=== PATIENT | male | born 1950 | race Caucasian/White ===

== ENCOUNTER 2024-06-05 15:00 | Outpatient (RCR) | payer MEDICARE, BC, SELFPAY ==
--- NOTE | 2024-05-15 16:47 | PT.OPEX ---
PT [place] Outpatient Eval PT [facility] Outpatient Eval Start: 05/15/24 09:15 Freq: Status: Active Protocol: Document 05/15/24 09:15 EILEEN (Rec: 05/15/24 16:47 EILEEN [id number]) E-signed By Charo Britt PT Physical Therapy Outpatient Evaluation Insurance Information Recert Due Date 08/12/24 Insurance Name Medicare B Medical Diagnosis CHRONIC NECK PAIN Treating Diagnosis NECK PAIN Referring MD LIONEL WHITESIDE Subjective Preferred Name KARINA Subjective PATIENT REPORTS WAKING 2-3 WEEKS AGO AND EXPERIENCING LEFT SIDED NECK PAIN. HE HAS CHANGED HIS PILLOW AND THIS SEEMS TO HAVE HELPED BUT C/O PAIN WITH RIGHT ROTATION PREDOMINATELY. HE WORKS FROM HIS DESK ~8HOURS A DAY BUT STATES, I GET UP AND MOVE AROUND EVERY 30-45 MINUTES AND GO FOR A 45 MIN WALK 3-4 X/WK . HE HAS BEEN TAKING IBUPROFEN AND USING HEAT WHICH HE FEELS IS HELPING WELL LOOKED ONLINE AND PERFORM STRETCHES FOR THE CERVICAL SPINE. HE IS UNABLE TO LAY FLAT ON HIS BACK D/T POSITIONAL COUGHING LIKELY RELATED TO HIS NEWLY DIAGNOSED UMBILICAL HERNIA. HE IS HERE TO IMPROVE HIS PAINFREE ROM BEFORE BEGINNING HIS ABDOMINAL WALL THERAPY WITH [facility]. 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 : [employer] Precautions Treatment Precautions/Contraindications NEWLY DX UMBILICAL HERNIA, CHRONIC COUGH D/T VIRAL INFECTION NOW TAKES NEBULIZER TX BID/DAILY, IDDM W/PUMP AND MONITOR, CAD W/TRIPLE BYPASS 2012 Therapy Limitations/Systems Review Not Limited Objective Other/Pertinent Objective SPINAL ALIGNMENT/POSTURE : SLIGHT FWD HEAD POSTURING WITH MOD ROUNDED SHOULDERS CERVICAL ROM Flexion: WNL Extension: WNL MIN ENDRANGE PAIN ON LEFT Right Rotation: WFL Left Rotation: LIMITED BY 50% W/PAIN AT ENDRANGE Right side bend: WFL Left Side bend: LIMITED BY 50% W/PAIN AT ENDRAGE SHOULDER AROM: UNREMARKABLE NECK/SHOULDER MMT: UNREMARKABLE SPECIAL TEST Spurlings Test: LEFT (+) Cervical distraction test: (- ) Neural Tension Test(Median/ Ulnar/Radial): (-) Bakody Sign(C4-C6 Radiculopathy): Shoulder impingement : UNREMARKABLE JOINT MOBILITY/PALPATION: MIN HYPOMOBILITY AT C4-5, C5-6 LEFT FACET WITH PALPABLE INFLAMMATION Functional Test Performed & Score NDI:11 (22%) Assessment Assessment/Impression PATIENT IS A [address] LIONEL WHITESIDE TO EVAL AND TREAT CHRONIC NECK PAIN; PMHX IS LISTED ABOVE PER PATIENT RECOLLECTION; HE DEMONSTRATES LIMITED AND PAINFUL LEFT ROTATION, LEFT SB , AND CERVICAL EXT WITH ASSOCIATED HYPOMOBILITY AT C4- 6 LEFT FACET AND PALPABLE INFLAMMATION AT SAME LEVEL. 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 Primary Functional Limitations PROLONGED POSITIONS SLEEPING IN PREFERRED POSITION -> STOMACH MOBILITY OF CERVICAL SPINE FOR DRIVING Plan of Care Rehabilitation Potential Good Physical Therapy Goals 1. PATIENT WILL BE EDUCATED ON POSTURE, BODY MECHANICS AND THE IMPORTANCE OF EA IN THE NEXT 2-3 WEEKS IN ORDER TO DECREASE STRESS TO THE JOINT/ MM AND TO DECREASE THEIR SYMPTOMS. 2. PATIENT WILL DECREASE THEIR PAIN AT WORST FROM 4/10 TO > /2/10 IN THE NEXT 4-6 WEEKS WE PROGRESS HER PHYSICAL THERAPY WELL DURING DAILY ACTIVITIES. 3. PATIENT WILL DEMONSTRATE IMPROVEMENT WITH THEIR ROM BY 25% / WFL TO IMPROVE EASE OF DAILY ACTIVITIES/LOGISTICS ASSISTANT AND WITH DRIVING WITHOUT FLARE UP OF PAIN. 4. PATIENT WILL BE INDEPENDENT WITH THEIR HEP WITHIN 6-8 WEEKS FOR PROGRESSION OF THE ABOVE GOALS, ONGOING SELF MGMT OF PAIN/SX, ONGOING, SELF IMPROVEMENTS IN ROM, POSTURE, AND RETURN TO BASELINE WITH DAILY ACTIVITIES, PEER/FAMILY CENTERED ACTIVITIES WITHOUT FLARE UPS OF SYMPTOMS/PAIN. Coordination/Communication With Referral Source Treatment Plan/Direct Interventions Heat,Ice/Cold/Vasopneumatic, Joint Mobilization,Manual Therapy,Neuromuscular Re-ed, Self-Care/Home Management, Therapeutic Activities, Therapeutic Exercises Frequency/Duration 1-2X/WK Patient Will Be Discharged From Therapy Completion of LTG(s), Independent w/HEP Evaluation Billing Untimed Code Treatment Minutes 25 PT Eval No Charge No Complexity Moderate Certification Information Initial Certification Date 05/15/24 Ending Certification Date 08/12/24 Provider Signature Required Yes Provider Signature Shows Agreement With POC & Medical Necessity Physician NPI Number Write NPI# Here Physician Comment/Change : Physician Signature & Date Requested Please Sign/Date Here
== END 2024-07-01 13:37 | disposition home or self-care (01) ==
PROVIDERS: PCP Family Medicine; Visit Provider Family Medicine
DX: M54.2 Cervicalgia (principal); G89.29 Other chronic pain; Z51.89 Encounter for other specified aftercare
CPT/HCPCS: 97110; 97140; 97162

== ENCOUNTER 2024-07-08 13:00 | Outpatient (RCR) | payer MEDICARE, BC, SELFPAY | END 2024-11-05 23:59 | disposition home or self-care (01) | PROVIDERS: PCP Family Medicine; Visit Provider Surgery | DX: K42.9 Umbilical hernia without obstruction or gangrene (principal); M62.08 Separation of muscle (nontraumatic), other site; R53.1 Weakness; R27.9 Unspecified lack of coordination; Z51.89 Encounter for other specified aftercare | CPT/HCPCS: 97110; 97140; 97162 ==

== ENCOUNTER 2025-07-28 09:54 | Emergency (ER) | payer MEDICARE, BC, SELFPAY ==
[2025-07-28 10:06] VITALS: BP 116/65; PULSE 86; RESP 24; TEMP 36.6; O2SAT 93; BMI 24.9
--- NOTE | 2025-07-28 10:22 | ED.GENADULT ---
HPI - General Adult General Date Seen: 07/28/25 Chief complaint: Cough Stated complaint: respiratory ; cough Time Seen by Provider: 07/28/25 10:16 Source: patient, family, RN notes reviewed and old records reviewed Mode of arrival: ambulatory Limitations: no limitations History of Present Illness HPI narrative: Jabier is a very pleasant 75-year-old type 1 diabetic with history of heart attack, stent placement in the early , prostate cancer in remission who comes to the emergency room for evaluation of persistent cough from the clinic. Jabier is noted to have recently been in [place] before . The day after he arrived he had a cold and other members of the family also had similar symptoms. A son-in-law tested and was negative for COVID. Unfortunately he continued to have weakness and cough in [place] and they flew back last week. His symptoms have not resolved in fact they have worsened a bit. He was getting some production with a yellow greenish and even occasionally orange production, but the last 2 days he has not. Denies any lower extremity edema calf tenderness history of DVT. He has had persistent runny nose and mild sore throat since the onset of his symptoms. Jabier does see pulmonology at [facility]. Is a history of brachial stasis. Related Data Home Medications ?Medication ?Instructions ?Recorded ?Confirmed aspirin 81 mg chewable tablet 81 mg PO DAILY 07/28/25 07/28/25 (Children's Aspirin) atorvastatin 40 mg tablet 40 mg PO DAILY 07/28/25 07/28/25 ezetimibe 10 mg tablet 10 mg PO DAILY 07/28/25 07/28/25 insulin aspart U-100 100 unit/mL 0 - 90 unit DIRECTED 07/28/25 subcutaneous solution insulin glargine 100 unit/mL 16 unit subcut DAILY 07/28/25 07/28/25 subcutaneous solution (Lantus U-100 Insulin) ipratropium 0.5 mg-albuterol 3 mg 3 ml inhalation BID PRN 07/28/25 07/28/25 (2.5 mg base)/3 mL nebulization soln Previous Rx's ?Medication ?Instructions ?Recorded amoxicillin 875 mg-potassium 1 tab PO BID #14 tabs 07/28/25 clavulanate 125 mg tablet azithromycin 250 mg tablet 250 mg PO DAILY 4 days #4 tabs 07/28/25 Allergies Allergy/AdvReac Type Severity Reaction Status Date / Time No Known Drug Allergies Allergy Verified 07/28/25 10:16 Review of Systems Status of ROS: Reports: 10 or more systems reviewed and unremarkable except as noted in History and below Const: Reports: fatigue; Denies: fever or chills Eyes: Denies: eye discharge ENMT: Reports: throat pain (Mild), nasal discharge and nasal congestion; Denies: neck pain Cardio: Reports: shortness of breath with exertion; Denies: chest pain, palpitations or swelling of feet/ankles Resp: Reports: shortness of breath and cough GI: Reports: diarrhea (Had 1 episode); Denies: abdominal pain, nausea, vomiting or constipation : Denies: painful urination or urinary frequency Musculo: Denies: back pain, neck pain or extremity pain Endo: Reports: fatigue Exam Narrative: Exam Narrative: Alert and oriented. Very well-spoken gentleman. No acute distress. Definitely appears fatigued. Eyes are clear oral cavity with moist mucous membranes. No erythema exudate in the posterior oropharynx. Neck is supple without lymphadenopathy. TMs bilaterally without erythema. Nose is clear. Heart with regular rate and rhythm. No additional heart sounds or murmurs loaded. Definitely decreased breath sounds on the left with fine crackles noted. Occasional crackles on the right. Abdomen soft nontender. Lower extremities show skin changes consistent with venous stasis. Healing scab over lateral distal lower extremity on the right. No calf tenderness, edema, Homans sign is negative. Const: Vital Signs, click to edit/add: Vital Signs - 24 hr 07/28/25 10:06 07/28/25 11:45 07/28/25 12:26 Temperature 97.9 F Pulse Rate [Pulse Oximeter] 86 82 62 Respiratory Rate 24 20 18 Blood Pressure [Ri ght Upper Arm] 116/65 142/86 H 129/63 Pulse Oximetry 93 95 95 Oxygen Delivery Me thod Room Air Room Air Room Air 07/28/25 12:30 07/28/25 13:00 07/28/25 13:30 Temperature Pulse Rate [Pulse Oximeter] 61 62 60 Respiratory Rate 20 20 16 Blood Pressure [Ri ght Upper Arm] 133/68 136/68 120/63 Pulse Oximetry 96 96 95 Oxygen Delivery Me thod Room Air Documenting provider has reviewed patient's vital signs: yes Course Course ED Course: Differential diagnosis includes but is not limited to pneumonia, PE, congestive heart failure, MRI. At this time I do not think we are dealing with sepsis as patient has normal vital signs, is afebrile with a normal pulse and blood pressure. Will place an IV and draw CBC, comprehensive, CRP, troponin,. Will also obtain CT of the chest PE study. Vital Signs Vital signs: Initial Vital Signs Temperature 97.9 F 07/28/25 10:06 Temperature Source Temporal Artery Scan 07/28/25 10:06 Pulse Rate 86 07/28/25 10:06 Respiratory Rate 24 07/28/25 10:06 Blood Pressure 116/65 07/28/25 10:06 Blood Pressure Mean 82 07/28/25 10:06 Blood Pressure Position Sitting 07/28/25 10:06 Pulse Oximetry 93 07/28/25 10:06 Oxygen Delivery Method Room Air 07/28/25 10:06 Vital Signs Temperature 97.9 F 07/28/25 10:06 Pulse Rate 86 07/28/25 10:06 Respiratory Rate 24 07/28/25 10:06 Blood Pressure 116/65 07/28/25 10:06 Pulse Oximetry 93 07/28/25 10:06 Oxygen Delivery Method Room Air 07/28/25 10:06 Temperature 97.9 F 07/28/25 10:06 Pulse Rate 60 07/28/25 13:30 Respiratory Rate 16 07/28/25 13:30 Blood Pressure 120/63 07/28/25 13:30 Pulse Oximetry 95 07/28/25 13:30 Oxygen Delivery Method Room Air 07/28/25 13:30 Medications Administered Medications: Discontinued Medications Generic Name Dose Route Start Last Admin Trade Name Malou PRN Reason Stop Dose Admin Azithromycin 500 mg 07/28/25 12:58 07/28/25 13:28 Azithromycin 250 Mg Tablet PO 07/28/25 12:59 500 mg ONCE ONE Administration Sodium Chloride 500 mls @ 500 mls/hr 07/28/25 10:35 07/28/25 12:30 0.9 % Sodium Chloride 500 Ml IV 07/28/25 11:34 500 mls/hr .Q1H PHOEBE Administration Piperacillin Sod/Tazobactam 100 mls @ 200 mls/hr 07/28/25 12:58 07/28/25 13:27 Sod 3.375 gm/ Sodium Chloride IVPB 07/28/25 12:59 200 mls/hr ONCE ONE Administration Medical Decision Making MDM Narrative Medical decision making narrative: 1. Pneumonia -CT confirmed pneumonia with no evidence of PE. White count elevated at 13.49 and CRP elevated at 5.7. He has tested negative for COVID and influenza. Antibiotics given in the ED. Patient received Zosyn 3.375 g and Zithromax 500 mg p.o. while in the ED. Would have him continue to his home nebulizers. He will continue on Augmentin 875 p.o. b.i.d. with 1st dose tonight for treatment of pneumonia. Zithromax 250 mg daily for 4 days will be started tomorrow. 2. Type 1 diabetes -continue to monitor is these numbers may be elevated secondary to infection. 3. Disposition-home at this time. He will return for worsening symptoms and as needed. He voices understanding. Initial potassium elevated at 5.6. I did have them redraw it and his potassium is 4.8 and thus initial potassium likely secondary to hemolysis. Medical Records Medical records reviewed: Yes I reviewed the patient's medical records Lab Data Lab results reviewed: Yes I reviewed the patient's lab results Labs: Lab Results 07/28/25 07/28/25 07/28/25 Range/Units 10:16 10:35 10:50 WBC 13.49 H (4.50-11.00) K/uL RBC 4.35 (4.30-5.90) m/uL Hgb 13.1 L (13.5-17.5) gm/dL Hct 40.3 (37.0-53.0) % MCV 93 (80-100) fL MCH 30 (26-34) pg MCHC 33 (32-36) gm/dL RDW Coeff of Tomasa 12.8 (11.5-15.5) % Plt Count 312 (140-440) K/uL Neut % (Auto) 85.0 H (42.0-72.0) % Lymph % (Auto) 7.3 L (20-44) % K[place]y % (Auto) 5.0 (0.0-11.0) % Eos % (Auto) 1.9 (0.0-7.0) % Baso % (Auto) 0.3 (0.0-3.0) % Neut # (Auto) 11.50 H (1.7-7.0) K/uL Lymph # (Auto) 1.00 (0.90-2.90) K/uL Kenedy # (Auto) 0.70 (0.00-0.90) K/UL Eos # (Auto) 0.30 (0.00-0.50) K/uL Baso # (Auto) 0.00 (0.00-0.30) K/uL Abs Immat Gran (auto) 0.10 (0.00-0.30) K/uL Imm/Tot Granulo (auto) 0.5 % Sodium 137 (135-149) mmol/L Potassium 5.6 H (3.6-5.1) mmol/L Chloride 102 (96-114) mmol/L Carbon Dioxide 26 (20-32) mmol/L Anion Gap 9 (7-15) mEq/L BUN 25 (7-30) mg/dL Creatinine 1.3 (0.5-1.5) mg/dL Estimated Creat Clear 54.72 Estimated GFR 58 ml/min Glucose 206 H (60-115) mg/dL Lactate 1.0 (0.5-1.9) mmol/L Calcium 8.9 (8.4-10.6) mg/dL Total Bilirubin 0.8 (0.1-1.5) mg/dL AST 41 H (12-35) U/L ALT 36 (4-50) U/L Alkaline Phosphatase 77 (40-150) U/L POC Troponin I High Sensi 11.8 (2.9-28.0) pg/mL C-Reactive Protein 5.7 H (0.5-1.0) mg/dL Total Protein 7.0 (6.0-8.3) g/dL Albumin 3.8 (3.3-5.0) g/dL SARS-CoV-2 (PCR) Negative SARS-CoV-2 (Negative) Influenza Type A (PCR) Negative PCR FLU A (Negative) Influenza Type B (PCR) Negative PCR FLU B (Negative) POC Creatinine (0.6-1.3) mg/dl 07/28/25 07/28/25 Range/Units 11:17 12:06 WBC (4.50-11.00) K/uL RBC (4.30-5.90) m/uL Hgb (13.5-17.5) gm/dL Hct (37.0-53.0) % MCV (80-100) fL MCH (26-34) pg MCHC (32-36) gm/dL RDW Coeff of Tomasa (11.5-15.5) % Plt Count (140-440) K/uL Neut % (Auto) (42.0-72.0) % Lymph % (Auto) (20-44) % K[place]y % (Auto) (0.0-11.0) % Eos % (Auto) (0.0-7.0) % Baso % (Auto) (0.0-3.0) % Neut # (Auto) (1.7-7.0) K/uL Lymph # (Auto) (0.90-2.90) K/uL [place]y # (Auto) (0.00-0.90) K/UL Eos # (Auto) (0.00-0.50) K/uL Baso # (Auto) (0.00-0.30) K/uL Abs Immat Gran (auto) (0.00-0.30) K/uL Imm/Tot Granulo (auto) % Sodium (135-149) mmol/L Potassium 4.8 (3.6-5.1) mmol/L Chloride (96-114) mmol/L Carbon Dioxide (20-32) mmol/L Anion Gap (7-15) mEq/L BUN (7-30) mg/dL Creatinine (0.5-1.5) mg/dL Estimated Creat Clear Estimated GFR ml/min Glucose (60-115) mg/dL Lactate (0.5-1.9) mmol/L Calcium (8.4-10.6) mg/dL Total Bilirubin (0.1-1.5) mg/dL AST (12-35) U/L ALT (4-50) U/L Alkaline Phosphatase (40-150) U/L POC Troponin I High Sensi (2.9-28.0) pg/mL C-Reactive Protein (0.5-1.0) mg/dL Total Protein (6.0-8.3) g/dL Albumin (3.3-5.0) g/dL SARS-CoV-2 (PCR) (Negative) Influenza Type A (PCR) (Negative) Influenza Type B (PCR) (Negative) POC Creatinine 1.4 H (0.6-1.3) mg/dl Imaging Data CT scan - chest: Attestation: I have reviewed the pertinent imaging results. My impression: I do not note any any PE but I do see evidence of bilateral pneumonia Radiologist's impression: FINDINGS: No pulmonary embolism is seen. Aorta is normal caliber. Moderate multifocal peripheral tree-in-bud nodularity greatest within the lower lung nugent with relative sparing the upper lungs. Consolidations within the medial right middle lobe and lingula, likely represents chronic scarring. Other linear consolidation is noted within the left lower lobe which is indeterminate. There is lower lobe predominant bronchial wall thickening with mucous plugging. No pleural effusion or pneumothorax. No gross mediastinal lymphadenopathy. Prominent hilar lymph nodes are likely reactive. The heart is prominent. Coronary calcifications present. No axillary lymphadenopathy. No chest wall mass. Imaging of the upper abdomen demonstrate a small hiatal hernia. Bone windows demonstrate no suspicious lytic or sclerotic lesion. No fracture. IMPRESSION: 1. Moderate multifocal tree-in-bud nodularity with lower lobe bronchial wall thickening and mucous plugging as evidence for atypical infection and/or aspiration with bronchitis. Short-term chest CT follow-up is recommended in 3 months. 2. No pulmonary embolism is seen. ECG Data Attestation: I personally reviewed and interpreted this ECG as follows: Interpretation: EKG by my read shows sinus rhythm at a rate of 63. I do not note any acute ST or T-wave changes. QT interval appears normal. Discharge Plan Discharge Clinical Impression: Pneumonia Patient Disposition: Home, Self-Care Condition: Unchanged Additional Instructions: Start Augmentin an antibiotic this evening and continued twice a day for 7 more days. Zithromax is your other antibiotic and will be once daily. You already received your dose today. Continue nebulizers and any other pulmonary treatments that you currently due. Increase fluids and stay well hydrated. Seek medical attention for worsening symptoms high fever and as needed. Prescriptions: New amoxicillin-pot clavulanate 875-125 mg tablet 1 tab PO BID Qty: 14 0RF azithromycin 250 mg tablet 250 mg PO DAILY 4 Days Qty: 4 0RF No Action atorvastatin 40 mg tablet 40 mg PO DAILY ezetimibe 10 mg tablet 10 mg PO DAILY aspirin [Children's Aspirin] 81 mg tablet,chewable 81 mg PO DAILY ipratropium-albuterol 0.5 mg-3 mg(2.5 mg base)/3 mL solution for nebulization 3 ml INHALATION BID PRN insulin glargine [Lantus U-100 Insulin] 100 unit/mL solution 16 unit subcut DAILY insulin aspart U-100 100 unit/mL solution 0 - 90 unit DIRECTED Follow Up/Referrals: Kody Loving MD [Primary Care Provider, Family Practice] Stand Alone Forms: Secret Lab Info Instructions
--- NOTE | 2025-07-28 10:35 | CRLHL7_ITS ---
For Patients: As a result of the Century Cures Act, medical imaging exams and procedure reports are released immediately into your electronic medical record. You may view this report before your referring provider. If you have questions, please contact your health care provider. INDICATION: Pulmonary embolism suspected, high probability. Cough. Recent travel TECHNIQUE: CT chest PE was acquired with 100 cc Omnipaque 350 IV contrast. Coronal and MIP reconstructions were performed. COMPARISON: None. FINDINGS: No pulmonary embolism is seen. Aorta is normal caliber. Moderate multifocal peripheral tree-in-bud nodularity greatest within the lower lung nugent with relative sparing the upper lungs. Consolidations within the medial right middle lobe and lingula, likely represents chronic scarring. Other linear consolidation is noted within the left lower lobe which is indeterminate. There is lower lobe predominant bronchial wall thickening with mucous plugging. No pleural effusion or pneumothorax. No gross mediastinal lymphadenopathy. Prominent hilar lymph nodes are likely reactive. The heart is prominent. Coronary calcifications present. No axillary lymphadenopathy. No chest wall mass. Imaging of the upper abdomen demonstrate a small hiatal hernia. Bone windows demonstrate no suspicious lytic or sclerotic lesion. No fracture. IMPRESSION: 1. Moderate multifocal tree-in-bud nodularity with lower lobe bronchial wall thickening and mucous plugging as evidence for atypical infection and/or aspiration with bronchitis. Short-term chest CT follow-up is recommended in 3 months. 2. No pulmonary embolism is seen. Please note that all CT scans at this facility use dose modulation, iterative reconstruction, and/or weight-based dosing when appropriate to reduce radiation dose to as low as reasonably achievable. Dictated by Jerel Mendenhall MD @ 07/28/2025 12:12:00 PM (Electronically Signed)
[2025-07-28 10:59] LABS: Lactate* 1.0 mmol/L (0.5-1.9)
[2025-07-28 11:02] LABS: Hematocrit* 40.3 % (37.0-53.0); Hemoglobin* 13.1 gm/dL (13.5-17.5); Immature Granulocytes Pct Auto 0.5 %; Mean Corpuscular HGB Conc 33 gm/dL (32-36); Mean Corpuscular Hemoglobin 30 pg (26-34); Mean Corpuscular Volume 93 fL (80-100); RDW Coefficient of Variation % 12.8 % (11.5-15.5); Red Blood Count* 4.35 m/uL (4.30-5.90); White Blood Count* 13.49 K/uL (4.50-11.00)
[2025-07-28 11:03] LABS: PCR FLU A Negative PCR FLU A (Negative); PCR FLU B Negative PCR FLU B (Negative); SARS PCR* Negative SARS-CoV-2 (Negative)
[2025-07-28 11:04] LABS: Immature Granulocytes Abs Auto 0.10 K/uL (0.00-0.30); Lymphocytes Absolute Auto 1.00 K/uL (0.90-2.90)
[2025-07-28 11:05] LABS: Slide Review Reflex No
[2025-07-28 11:13] LABS: Albumin* 3.8 g/dL (3.3-5.0); Chloride* 102 mmol/L (96-114); Potassium* 5.6 mmol/L (3.6-5.1); Sodium* 137 mmol/L (135-149)
[2025-07-28 11:16] LABS: Alanine Aminotransferase* 36 U/L (4-50); Alkaline Phosphatase* 77 U/L (40-150); Anion Gap 9 mEq/L (7-15); Aspartate Amino Transferase* 41 U/L (12-35); Bilirubin Total* 0.8 mg/dL (0.1-1.5); Blood Urea Nitrogen* 25 mg/dL (7-30); Carbon Dioxide* 26 mmol/L (20-32); Creatinine* 1.3 mg/dL (0.5-1.5); Est. Creatinine Clearance* 54.72; Estimated Glomerular Filt Rate 58 ml/min; Total Protein* 7.0 g/dL (6.0-8.3)
[2025-07-28 11:17] LABS: Calcium* 8.9 mg/dL (8.4-10.6); Glucose* 206 mg/dL (60-115)
[2025-07-28 11:20] LABS: Creatinine, Point-of-Care* 1.4 mg/dl (0.6-1.3)
[2025-07-28 11:45] VITALS: BP 142/86; PULSE 82; RESP 20; O2SAT 95
[2025-07-28 12:26] VITALS: BP 129/63; PULSE 62; RESP 18; O2SAT 95
[2025-07-28 12:30] VITALS: BP 133/68; PULSE 61; RESP 20; O2SAT 96
[2025-07-28] MEDS: 0.9 % SODIUM CHLORIDE 500 ML 500 ML IV (12:30)
[2025-07-28 12:36] LABS: Potassium* 4.8 mmol/L (3.6-5.1)
[2025-07-28 13:00] VITALS: BP 136/68; PULSE 62; RESP 20; O2SAT 96
[2025-07-28] MEDS: PIPERACILLIN/TAZOBACTAM 3.375 GM in 0.9 % SODIUM CHLORIDE Mini-bag 100 ML IVPB (13:27)
[2025-07-28] MEDS: AZITHROMYCIN 250 MG TABLET 500 MG PO (13:28)
[2025-07-28 13:30] VITALS: BP 120/63; PULSE 60; RESP 16; O2SAT 95
== END 2025-07-28 14:14 | disposition home or self-care (01) ==
PROVIDERS: Emergency Provider Family Medicine; PCP Family Medicine
DX: J18.9 Pneumonia, unspecified organism (principal); E10.8 Type 1 diabetes mellitus with unspecified complications
CPT/HCPCS: 36415; 71275; 80053; 82565; 83605; 84132; 84484; 85025; 86140; 87070; 87205; 87631; 87636; 93005; 96365; 99284; 99285; A9270; J2543; J7030; Q9967